=== PATIENT | male | born 1965 | race Caucasian/White ===

== ENCOUNTER → 2018-11-14 | Outpatient (CLI) | payer BC ==
[~2018-11-14] MED LIST: LANS15CA5 PO; SIMV20TA3 PO
[2018-11-14 14:53] LABS: MICROSCOPIC NOT IND
[2018-11-14 14:54] LABS: BASOPHILS # (AUTO) 0.04 x10^3/uL (0-0.1); BASOPHILS % (AUTO) 0 % (0-1); EOSINOPHILS # (AUTO) 0.21 x10^3/uL (0-0.4); EOSINOPHILS % (AUTO) 2 % (1-7); LYMPHOCYTES # (AUTO) 2.78 x10^3/uL (1-3.4); LYMPHOCYTES % (AUTO) 31 % (22-44); MD NO; MEAN CORPUSCULAR HEMOGLOBIN 29.9 pg (27.5-34.5); MEAN CORPUSCULAR HGB CONC 33.4 g/dL (33.2-36.2); MEAN CORPUSCULAR VOLUME 89.6 fL (81-97); MEAN PLATELET VOLUME 6.7 fL (7.4-10.4); MONOCYTES # (AUTO) 0.78 x10^3/uL (0.2-0.8); MONOCYTES % (AUTO) 9 % (2-9); NEUTROPHILS # (AUTO) 5.21 x10^3/uL (1.8-6.8); NEUTROPHILS % (AUTO) 58 % (42-75); PLATELET COUNT 255 x10^3/uL (130-400); RED BLOOD COUNT 5.46 x10^6/uL (4.38-5.82); RED CELL DISTRIBUTION WIDTH 13.3 % (9.4-14.8)
[2018-11-14 15:00] LABS: CULTURE INDICATED? NO
[2018-11-14 15:05] LABS: ALBUMIN 4.4 g/dL (3.4-5.0); ANION GAP 4 mmol/L (5-15); CALCIUM 9.4 mg/dL (8.5-10.1); CHLORIDE 106 mmol/L (98-107)
[2018-11-14 15:08] LABS: ALANINE AMINOTRANSFERASE 28 U/L (12-78); ALKALINE PHOSPHATASE 76 U/L (45-117); BILIRUBIN,TOTAL 0.6 mg/dL (0.2-1.0); CREATININE 1.05 mg/dL (0.7-1.3)
[2018-11-14 15:24] LABS: INTERNATIONAL NORMALIZED RATIO 1.02 (0.93-1.1); PROTHROMBIN TIME 10.7 Seconds (9.6-11.5)
== END | disposition home or self-care (01) ==
LOC: STAR 14:07
PROVIDERS: ATTEND Neurological Surgery
DX: Z01.812 Encounter for preprocedural laboratory examination (principal); Z01.811 Encounter for preprocedural respiratory examination; M43.16 Spondylolisthesis, lumbar region; R79.1 Abnormal coagulation profile
CPT/HCPCS: 36415; 71046; 80053; 81003; 85025; 85610; 85730; 93005

== ENCOUNTER 2018-11-22 09:47 | Inpatient (IN) | payer BC ==
[~2018-11-22] VITALS: Ht 182.9 cm; Wt 100.8 kg
[~2018-11-22 09:47] MED LIST changes: +ACETAMINOPHEN 500 MG TABLET PO ONE; +BACITRACIN 50,000 UNIT ONE; +BUPIVACAINE 0.25% ONE; +BUPIVACAINE/PF 0.25% ONE; +BUPIVACAINE/PF-EPI 0.5% 1:200K ONE; +DIAZEPAM 5 MG TABLET PO ONE; +FENTANYL PF 100 MCG/2ML ONE; +GABAPENTIN 300 MG CAPSULE PO ONE; +OxyconTIN ER 20 MG TAB.ER PO ONE; +VANCOMYCIN 1,000 MG ONE
[2018-11-22 10:53] VITALS: BP 129/84
[2018-11-22] MEDS ORDERED: LACTATED RINGERS 1,000 ML IV SCH (10:59)
[2018-11-22] MEDS ORDERED: OMEP-110 PO (11:00)
[2018-11-22] MEDS ORDERED: MIDAZOLAM 1 MG/ML, 2ML ONE (12:02)
[2018-11-22] MEDS ORDERED: PROPOFOL 50 ML ONE ×3 (12:02→15:45)
[2018-11-22] MEDS ORDERED: FENTANYL PF 250 MCG/5ML ONE (12:03)
[2018-11-22] MEDS ORDERED: KETAMINE 10 MG/ML, 20ML ONE (12:56)
[2018-11-22] MEDS ORDERED: THROMBIN 20,000 UNIT VIAL TP ONE (12:57)
[2018-11-22] MEDS ORDERED: HEPARIN 1,000 UNITS/ML, 30ML ONE (14:00)
[2018-11-22] MEDS ORDERED: HEPARIN 1,000 UNITS/ML, 30ML IVPB ONE (14:21)
[2018-11-22] MEDS ORDERED: FENTANYL PF 100 MCG/2ML IV PRN (15:00)
[2018-11-22] MEDS ORDERED: DIAZEPAM 5 MG/ML, 2ML IVPush PRN (15:00)
[2018-11-22] MEDS ORDERED: MEPERIDINE/PF 25MG/0.5ML IVPush PRN (15:00)
[2018-11-22] MEDS ORDERED: HYDROmorphone 2 MG/ML, 1ML IVPush PRN (15:00)
[2018-11-22] MEDS ORDERED: PROMETHAZINE 25 MG/ML, 1ML IV PRN (15:00)
[2018-11-22] MEDS ORDERED: SCOPOLAMINE PATCH, 1.5MG PATCH.TD72 TD PRN (15:00)
[2018-11-22] MEDS ORDERED: ONDANSETRON 2MG/ML, 2ML IV PRN ×2 (15:00→20:00)
[2018-11-22] MEDS ORDERED: ALBUTEROL/IPRATROPIUM 2.5MG/0.5MG, 3 ML NPPB PRN (15:00)
[2018-11-22] MEDS ORDERED: MIDAZOLAM 1 MG/ML, 2ML IV PRN (15:00)
[2018-11-22] MEDS ORDERED: hydrALAzine 20 MG/ML, 1ML IV PRN (15:00)
[2018-11-22] MEDS ORDERED: OXYcodone 5 MG/5 ML ORAL.SOL UDC PO PRN (15:00)
[2018-11-22] MEDS ORDERED: METOPROLOL 1 MG/ML, 5ML IV PRN (15:00)
[2018-11-22] MEDS ORDERED: ROCURONIUM 10MG/ML,5ML ONE (16:13)
[2018-11-22] MEDS ORDERED: CEFAZOLIN 1,000 MG ONE (16:13)
[2018-11-22] MEDS ORDERED: GLYCOPYRROLATE 0.2MG/1ML, 5ML ONE (16:13)
[2018-11-22] MEDS ORDERED: ONDANSETRON 2MG/ML, 2ML ONE (16:13)
[2018-11-22] MEDS ORDERED: PROPOFOL 10 MG/ML, 20ML ONE (16:13)
[2018-11-22] MEDS ORDERED: NEOSTIGMINE 1 MG/ML, 10ML ONE (16:13)
[2018-11-22] MEDS ORDERED: DEXAMETHASONE 4 MG/ML, 1ML ONE (16:13)
[2018-11-22] MEDS ORDERED: FENTANYL PF 100 MCG/2ML ONE (16:14)
[2018-11-22] MEDS ORDERED: BUPIVACAINE/PF 0.25% EPIDPUSH ONE (16:47)
[2018-11-22] MEDS ORDERED: FENTANYL PF 100 MCG/2ML EPIDPUSH ONE (16:48)
[2018-11-22] MEDS ORDERED: PHARMACY MAY ADJ FOR RENAL FX MC PRN (19:30)
[2018-11-22] MEDS ORDERED: CYCLOBENZAPRINE 10 MG TABLET PO PRN (20:00)
[2018-11-22] MEDS ORDERED: LABETALOL 5MG/ML, 20ML IV PRN (20:00)
[2018-11-22] MEDS ORDERED: DIPHENHYDRAMINE 50 MG CAPSULE PO PRN (20:00)
[2018-11-22] MEDS ORDERED: HYDROcodone/APAP 10/325 MG TABLET PO PRN (20:00)
[2018-11-22] MEDS ORDERED: MAGNESIUM HYDROXIDE 8%, 30ML UDC PO PRN (20:00)
[2018-11-22] MEDS ORDERED: morphine SULFATE 10 MG/ML, 1ML IV PRN (20:00)
[2018-11-22] MEDS ORDERED: BISACODYL 10 MG SUPP PR PRN (20:00)
[2018-11-22] MEDS ORDERED: PROMETHAZINE 25 MG/ML, 1ML IM PRN (20:00)
[2018-11-22] MEDS: D5%-0.9% NACL+KCL 20MEQ 1,000 ML IV SCH (20:22)
[2018-11-22] MEDS: CEFAZOLIN PMX 1GM/50ML 50 ML IVPB SCH (20:22)
[2018-11-22 20:30] VITALS: BP 131/89
[2018-11-22] MEDS ORDERED: DOXYCYCLINE 100MG TABLET PO SCH (21:00)
[2018-11-22] MEDS: OXYcodone/APAP 5/325MG TABLET PO PRN (21:21)
[2018-11-23 00:35] VITALS: BP 104/72
[2018-11-23 01:17] VITALS: BP 124/65
[2018-11-23] MEDS: OXYcodone/APAP 5/325MG TABLET PO PRN ×6 (01:52→22:21)
[2018-11-23] MEDS: CEFAZOLIN PMX 1GM/50ML 50 ML IVPB SCH ×3 (04:29→19:38)
[2018-11-23 05:14] LABS: BASOPHILS % (AUTO) 0 % (0-1); EOSINOPHILS % (AUTO) 0 % (1-7); LYMPHOCYTES # (AUTO) 1.14 x10^3/uL (1-3.4); LYMPHOCYTES % (AUTO) 9 % (22-44); MD NO; MEAN CORPUSCULAR HEMOGLOBIN 30.7 pg (27.5-34.5); MEAN CORPUSCULAR HGB CONC 34.5 g/dL (33.2-36.2); MEAN PLATELET VOLUME 6.8 fL (7.4-10.4); MONOCYTES # (AUTO) 1.15 x10^3/uL (0.2-0.8); MONOCYTES % (AUTO) 9 % (2-9); NEUTROPHILS % (AUTO) 82 % (42-75); PLATELET COUNT 235 x10^3/uL (130-400); RED BLOOD COUNT 4.65 x10^6/uL (4.38-5.82); RED CELL DISTRIBUTION WIDTH 12.9 % (9.4-14.8)
[2018-11-23 05:29] LABS: ANION GAP 5 mmol/L (5-15); CALCIUM 8.3 mg/dL (8.5-10.1); CHLORIDE 110 mmol/L (98-107)
[2018-11-23 05:30] LABS: CREATININE 1.06 mg/dL (0.7-1.3)
[2018-11-23] MEDS: D5%-0.9% NACL+KCL 20MEQ 1,000 ML IV SCH ×2 (06:00→16:17)
[2018-11-23] MEDS: ENOXAPARIN 40 MG/0.4 ML SQ SCH (06:06)
[2018-11-23 08:35] VITALS: BP 115/66
[2018-11-23] MEDS: SENNA/DOCUSATE TABLET PO SCH (09:01)
[2018-11-23 13:07] VITALS: BP 121/68
[2018-11-23 20:05] VITALS: BP 110/66
[2018-11-24 01:24] VITALS: BP 106/65
[2018-11-24] MEDS: D5%-0.9% NACL+KCL 20MEQ 1,000 ML IV SCH (02:00)
[2018-11-24] MEDS: OXYcodone/APAP 5/325MG TABLET PO PRN ×3 (02:29→10:21)
[2018-11-24 05:30] LABS: ANION GAP 4 mmol/L (5-15); BASOPHILS # (AUTO) 0.02 x10^3/uL (0-0.1); BASOPHILS % (AUTO) 0 % (0-1); CALCIUM 8.4 mg/dL (8.5-10.1); CHLORIDE 110 mmol/L (98-107); CREATININE 1.12 mg/dL (0.7-1.3); EOSINOPHILS # (AUTO) 0.08 x10^3/uL (0-0.4); EOSINOPHILS % (AUTO) 1 % (1-7); LYMPHOCYTES # (AUTO) 1.69 x10^3/uL (1-3.4); LYMPHOCYTES % (AUTO) 15 % (22-44); MD NO; MEAN CORPUSCULAR HEMOGLOBIN 31.1 pg (27.5-34.5); MEAN CORPUSCULAR HGB CONC 34.6 g/dL (33.2-36.2); MEAN CORPUSCULAR VOLUME 90.1 fL (81-97); MEAN PLATELET VOLUME 7.1 fL (7.4-10.4); MONOCYTES # (AUTO) 1.21 x10^3/uL (0.2-0.8); MONOCYTES % (AUTO) 10 % (2-9); NEUTROPHILS # (AUTO) 8.56 x10^3/uL (1.8-6.8); NEUTROPHILS % (AUTO) 74 % (42-75); PLATELET COUNT 221 x10^3/uL (130-400); RED BLOOD COUNT 4.25 x10^6/uL (4.38-5.82); RED CELL DISTRIBUTION WIDTH 12.8 % (9.4-14.8)
[2018-11-24] MEDS: ENOXAPARIN 40 MG/0.4 ML SQ SCH (06:35)
[2018-11-24 07:47] VITALS: BP 112/79
[2018-11-24] MEDS: SENNA/DOCUSATE TABLET PO SCH (08:25)
[2018-11-24] MEDS ORDERED: OXYC-302 PO (09:09)
[2018-11-24] MEDS ORDERED: CYCL-259 PO (09:09)
[2018-11-24] MEDS ORDERED: DOXY100T PO (09:10)
== END 2018-11-24 10:20 | disposition home or self-care (01) | DRG 455 ==
LOC: ORIP 10:21 → 4NOR 19:16
PROVIDERS: ADMIT Neurological Surgery; ATTEND Neurological Surgery
PROC: 0WJH0ZZ Inspection of Retroperitoneum, Open Approach (ICD-10-PCS; 2018-11-22)
PROC: 0SG30A0 Fusion of Lumbosacral Joint with Interbody Fusion Device, Anterior Approach, Anterior Column, Open Approach (ICD-10-PCS; principal; 2018-11-24)
PROC: 0SG3071 Fusion of Lumbosacral Joint with Autologous Tissue Substitute, Posterior Approach, Posterior Column, Open Approach (ICD-10-PCS; 2018-11-24)
PROC: 0SB40ZZ Excision of Lumbosacral Disc, Open Approach (ICD-10-PCS; 2018-11-24)
PROC: 01NB0ZZ Release Lumbar Nerve, Open Approach (ICD-10-PCS; 2018-11-24)
PROC: 0QB00ZZ Excision of Lumbar Vertebra, Open Approach (ICD-10-PCS; 2018-11-24)
PROC: 00NY0ZZ Release Lumbar Spinal Cord, Open Approach (ICD-10-PCS; 2018-11-24)
PROC: 4A11X4G Monitoring of Peripheral Nervous Electrical Activity, Intraoperative, External Approach (ICD-10-PCS; 2018-11-24)
DX: M43.17 Spondylolisthesis, lumbosacral region (principal); M51.17 Intervertebral disc disorders with radiculopathy, lumbosacral region; E66.9 Obesity, unspecified; G89.29 Other chronic pain; M48.07 Spinal stenosis, lumbosacral region; K21.9 Gastro-esophageal reflux disease without esophagitis; E78.5 Hyperlipidemia, unspecified; Z68.30 Body mass index [BMI] 30.0-30.9, adult
CPT/HCPCS: 36415; 72100; 74018; J3490; 72131; 80048; 85025; 86850; 86900; C1713; G0378; J0690; J1100; J1644; J1650; J2250; J2405; J2704; J2710; J3010; J3370; C1762; J3480; J7120